=== PATIENT | male | born 1995 | race African-American/Black ===

== ENCOUNTER 2017-12-19 20:03 | Emergency (ER) | payer OTHER ==
[~2017-12-19] VITALS: Ht 185.4 cm; Wt 79.4 kg
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
[2017-12-19 20:27] VITALS: BP 137/77
[2017-12-19] MEDS ORDERED: HYDROcodon/IBUPROFEN 7.5/200MG 1 TAB TABLET PO ONE (20:30)
--- NOTE | 2017-12-20 08:41 | RAD ---
Right ankle x-rays 3 views History: Fall, ankle sprain, history of navicular fracture surgically fixated. Findings: 2 fixation screws across the navicular without loosening or fracture of the screws. No fracture or dislocation of the ankle. No talus osteochondral lesion. The soft tissues are unremarkable. Impression: No acute osseous injury.
--- NOTE | 2017-12-20 08:44 | RAD ---
Right foot x-rays 3 views History: Fall, history of navicular surgical fixation, ankle sprain. Findings: There are 2 internal fixation screws of the navicular noted which bridge a lucent fracture which is best visualized on the oblique view. No bony lysis surrounding the screws to suggest loosening. The remainder of the foot demonstrates no fracture or dislocation. Impression: 2 screws internally fixate a navicular fracture. The remainder of the foot is intact.
== END 2017-12-19 22:00 | disposition home or self-care (01) ==
LOC: ER 20:03
DX: S93.401A Sprain of unspecified ligament of right ankle, initial encounter (principal); S93.601A Unspecified sprain of right foot, initial encounter; V89.9XXA Person injured in unspecified vehicle accident, initial encounter; Y93.89 Activity, other specified; Y99.8 Other external cause status; Y92.89 Other specified places as the place of occurrence of the external cause
CPT/HCPCS: 29515; 73610; 73630; 99284

== ENCOUNTER 2018-10-19 15:35 | Emergency (ER) | payer OTHER ==
[~2018-10-19] VITALS: Ht 182.9 cm; Wt 81.6 kg
[~2018-10-19 15:35] MED LIST: hydrOXYzine HCL 25 MG TABLET PO STA
[2018-10-19 16:12] LABS: BASO % 1 % (0-3); EOS % 0 % (0-3); HEMATOCRIT 48.9 % (39.0-53.0); LYMPH # 1.4 x10^3/uL (1.0-4.8); LYMPH % 28 % (24-48); MEAN CORPUSCULAR HEMOGLOBIN 27 pg (25-35); MEAN CORPUSCULAR HGB CONC 33 g/dL (31-37); MEAN CORPUSCULAR VOLUME 84 fL (79-100); MONO # 0.4 x10^3/uL (0.0-1.1); MONO % 9 % (0-9); NEUT # 3.3 x10^3uL (1.8-7.7); NEUT % 63 % (31-73); PLATELET COUNT 201 x10^3/uL (140-400); RED BLOOD COUNT 5.85 x10^6/uL (4.30-5.70); RED CELL DISTRIBUTION WIDTH 13.2 % (11.5-14.5); WHITE BLOOD COUNT 5.2 x10^3/uL (4.0-11.0)
[2018-10-19 16:15] LABS: BARBITURATES NEG (NEG); BENZODIAZEPINES NEG (NEG); CANNABINOIDS POS (NEG); COCAINE NEG (NEG); METHADONE NEG (NEG); OPIATES NEG (NEG); PHENCYCLIDINE NEG (NEG)
[2018-10-19 16:22] LABS: ALBUMIN 4.4 g/dL (3.4-5.0); ALBUMIN/GLOBULIN RATIO 1.2 (1.0-1.7); CALCIUM 9.3 mg/dL (8.5-10.1); CREATININE 1.2 mg/dL (0.7-1.3); GFR 92.5; POTASSIUM 3.6 mmol/L (3.5-5.1); TOTAL BILIRUBIN 2.6 mg/dL (0.2-1.0); TOTAL PROTEIN 8.2 g/dL (6.4-8.2)
[2018-10-19 16:26] LABS: AMPHETAMINE/METHAMPHETAMINE NEG (NEG)
[2018-10-19 16:34] LABS: BACTERIA,URINE 0 /HPF (0-FEW); BILIRUBIN,URINE NEG (NEG); CLARITY,URINE CLEAR; COLOR,URINE STRAW; GLUCOSE,URINE NEG (NEG); NITRITE,URINE NEG (NEG); RBC,URINE RARE /HPF (0-2); SQUAMOUS EPITHELIAL CELL,UR OCC /LPF; UROBILINOGEN,URINE 0.2 mg/dL (0.2 mg/dL); WBC,URINE RARE /HPF (0-4)
--- NOTE | 2018-10-19 17:07 | PHYS DOC ---
Past History Past Medical History: Anxiety, Asthma, Bipolar (TED KENNEDY MD) Past Surgical History: No Surgical History (TED KENNEDY MD) Alcohol Use: Rarely Drug Use: None (TED KENNEDY MD) Adult General Chief Complaint Chief Complaint: Insomnia HPI HPI Patient is a 23 year old male who brought in by his uncle because of not able to sleep for 30 hours. Patient has history of bipolar disorder and did not follow-up with [facility] since last April and did not take his medication for several months. Patient states he was on his computer and playing with [employer] since yesterday morning and was not able to sleep all night. Patient denies suicidal and homicidal ideation, hallucination, using drug or drinking alcohol, change of appetite. Patient's uncle states he had pressure talking and thinking and had symptom of manic episode. Patient was seen at [facility] today and was sent to ER for evaluation. Patient had history of hospitalization about one year ago because of manic symptom. (TED KENNEDY MD) Review of Systems Review of Systems Constitutional: Denies fever or chills [] Eyes: Denies change in visual acuity, redness, or eye pain [] HENT: Denies nasal congestion or sore throat [] Respiratory: Denies cough or shortness of breath [] Cardiovascular: No additional information not addressed in HPI [] GI: Denies abdominal pain, nausea, vomiting, bloody stools or diarrhea [] : Denies dysuria or hematuria [] Musculoskeletal: Denies back pain or joint pain [] Integument: Denies rash or skin lesions [] Neurologic: Denies headache, focal weakness or sensory changes [] Endocrine: Denies polyuria or polydipsia [] All other systems were reviewed and found to be within normal limits, except as documented in this note. (TED KENNEDY MD) Current Medications Current Medications Current Medications Medications (Trade) Dose Ordered Sig/Katt Start Time Stop Time Status Last Admin Dose Admin Hydroxyzine HCl (Atarax) 50 mg 1X STAT 10/19/18 14:00 10/19/18 15:51 DC 10/19/18 16:08 50 MG (TED KENNEDY MD) Allergies Allergies Allergies Coded Allergies Type Severity Reaction Last Updated Verified No Known Drug Allergies 12/19/17 No (TED KENNEDY MD) Physical Exam Physical Exam Constitutional: Well nourished, no acute distress, non-toxic appearance. [] HENT: Normocephalic, atraumatic, bilateral external ears normal, oropharynx moist, no oral exudates, nose normal. [] Eyes: PERRLA, EOMI, conjunctiva normal, no discharge. [] Neck: Normal range of motion, no tenderness, supple, no stridor. [] Cardiovascular:Heart rate regular rhythm, no murmur [] Lungs & Thorax: Bilateral breath sounds clear to auscultation [] Abdomen: Bowel sounds normal, soft, no tenderness, no masses, no pulsatile masses. [] Skin: Warm, dry, no erythema, no rash. [] Back: No tenderness, no CVA tenderness. [] Extremities: No tenderness, no cyanosis, no clubbing, ROM intact, no edema. [] Neurologic: Alert and oriented X 3, normal motor function, normal sensory function, no focal deficits noted. [] Psychologic: Affect normal, judgement normal, mood normal. [] (TED KENNEDY MD) Physical Exam Constitutional: Well nourished, no acute distress, non-toxic appearance. [] HENT: Normocephalic, atraumatic, oropharynx moist Eyes: PERRL, EOMI, conjunctiva normal Neck: Normal range of motion, no tenderness, supple Cardiovascular: Heart rate regular rhythm, no murmur [] Lungs & Thorax: Bilateral breath sounds clear to auscultation [] Skin: Warm, dry Extremities: No tenderness, ROM intact, strength 5/5 all 4 extremities Neurologic: Alert and oriented X 3, normal motor function, normal sensory function, no focal deficits noted. [] Psychologic: Affect normal, judgement normal, mood normal; denies suicidal or homicidal ideation (FERNANDEZ KESSLER DO) Current Patient Data Vital Signs Vital Signs Date Time Temp Pulse Resp B/P (MAP) Pulse Ox O2 Delivery O2 Flow Rate FiO2 10/19/18 15:40 97.8 69 20 100 Room Air Lab Results Laboratory Tests Test 10/19/18 15:55 10/19/18 15:56 Urine Collection Type Unknown Urine Color Straw Urine Clarity Clear Urine pH 6.5 Urine Specific [place] <=1.005 Urine Protein Neg (NEG-TRACE) Urine Glucose (UA) Neg mg/dL (NEG) Urine Ketones (Stick) 15 mg/dL (NEG) Urine Blood Neg (NEG) Urine Nitrite Neg (NEG) Urine Bilirubin Neg (NEG) Urine Urobilinogen Dipstick 0.2 mg/dL (0.2 mg/dL) Urine Leukocyte Esterase Neg (NEG) Urine RBC Rare /HPF (0-2) Urine WBC Rare /HPF (0-4) Urine Squamous Epithelial Cells Occ /LPF Urine Bacteria 0 /HPF (0-FEW) Urine Opiates Screen Neg (NEG) Urine Methadone Screen Neg (NEG) Urine Barbiturates Neg (NEG) Urine Phencyclidine Screen Neg (NEG) Urine Amphetamine/Methamphetamine Neg (NEG) Urine Benzodiazepines Screen Neg (NEG) Urine Cocaine Screen Neg (NEG) Urine Cannabinoids Screen Pos (NEG) Urine Ethyl Alcohol Neg (NEG) White Blood Count 5.2 x10^3/uL (4.0-11.0) Red Blood Count 5.85 x10^6/uL (4.30-5.70) H Hemoglobin 16.0 g/dL (13.0-17.5) Hematocrit 48.9 % (39.0-53.0) Mean Corpuscular Volume 84 fL (79-100) Mean Corpuscular Hemoglobin 27 pg (25-35) Mean Corpuscular Hemoglobin Concent 33 g/dL (31-37) Red Cell Distribution Width 13.2 % (11.5-14.5) Platelet Count 201 x10^3/uL (140-400) Neutrophils (%) (Auto) 63 % (31-73) Lymphocytes (%) (Auto) 28 % (24-48) Monocytes (%) (Auto) 9 % (0-9) Eosinophils (%) (Auto) 0 % (0-3) Basophils (%) (Auto) 1 % (0-3) Neutrophils # (Auto) 3.3 x10^3uL (1.8-7.7) Lymphocytes # (Auto) 1.4 x10^3/uL (1.0-4.8) Monocytes # (Auto) 0.4 x10^3/uL (0.0-1.1) Eosinophils # (Auto) 0.0 x10^3/uL (0.0-0.7) Basophils # (Auto) 0.0 x10^3/uL (0.0-0.2) Sodium Level 140 mmol/L (136-145) Potassium Level 3.6 mmol/L (3.5-5.1) Chloride Level 101 mmol/L (98-107) Carbon Dioxide Level 28 mmol/L (21-32) Anion Gap 11 (6-14) Blood Urea Nitrogen 8 mg/dL (8-26) Creatinine 1.2 mg/dL (0.7-1.3) Estimated GFR (Cockcroft-Gault) 92.5 BUN/Creatinine Ratio 7 (6-20) Glucose Level 116 mg/dL (70-99) H Calcium Level 9.3 mg/dL (8.5-10.1) Total Bilirubin 2.6 mg/dL (0.2-1.0) H Aspartate Amino Transferase (AST) 22 U/L (15-37) Alanine Aminotransferase (ALT) 26 U/L (16-63) Alkaline Phosphatase 58 U/L (46-116) Total Protein 8.2 g/dL (6.4-8.2) Albumin 4.4 g/dL (3.4-5.0) Albumin/Globulin Ratio 1.2 (1.0-1.7) (TED KENNEDY MD) EKG EKG [] (TED KENNEDY MD) Radiology/Procedures Radiology/Procedures [] (TED KENNEDY MD) Course & Med Decision Making Course & Med Decision Making Pertinent Labs reviewed. (See chart for details) Evaluation of patient in ER showed 23-year-old male patient with history of bipolar disorder family members because of insomnia since last night. Patient was alert and oriented and answered the question appropriately and did not have suicidal and homicidal ideation and hallucination. Mild elevation of bilirubin. Urinalysis was positive for marijuana. Patient treated with hydroxyzine and was sleeping all the time. Waiting for psychiatric evaluation. And care transferred to Dr. Turner at 1800. (TED KENNEDY MD) Course & Med Decision Making Patient was seen and evaluated by TELE psych, they recommended to admit him, patient his family refused admission, he requested to be treated in the outpatient setting .patient denies being suicidal or homicidal he is stated that I just need to help to sleep. Patient uncle in the room stated that his mom In the morning from [place] to take care of him he has a very supportive family . (EDWARD TURNER MD) Course & Med Decision Making 0600- Sign out received from Dr. Turner for patient with reports of delusions likely secondary to insomnia with history of bipolar disorder, not currently well managed on medications. Patient was medically cleared and underwent tele- psychiatric evaluation prior to any sleep. Patient was given medications last night to help sleep. Patient was seen and evaluated by myself. Patient appears with appropriate mentation. Denies suicidal or homicidal ideation at this time. Patient requesting to be discharge home with his mother who is flying in this AM. Patient with history of prior treatment with [facility]. 0830- Given patient's history and request, contacted [facility] upon their opening for re-evaluation and recommendation. Discussed case with Addison, who has seen patient previously and is in agreement with coming and re-evaluating patient in the ED. 0930- Addison from [facility] here and has evaluated patient and had patient sign a safety contract. Addison reports patient safe at this time for outpatient follow-up at the [facility]. Patient in agreement. Patient stable for discharge with outpatient follow-up with PCP/Psych. Discussed findings and plan with patient, who acknowledges understanding and agreement. (FERNANDEZ KESSLER DO) Dragon Disclaimer Dragon Disclaimer This electronic medical record was generated, in whole or in part, using a voice recognition dictation system. (TED KENNEDY MD) Departure Departure: Impression: Primary Impression: Insomnia Additional Impressions: Bipolar disorder Noncompliance with treatment Marijuana abuse Elevated bilirubin Disposition: HOME, SELF-CARE (under care of family) Condition: STABLE Referrals: PCP,NO (PCP) Patient Instructions: Insomnia-Brief, Manic Depression (Bipolar Disorder), Marijuana Abuse-Brief Additional Instructions: One of your lab values (bilirubin) was found to be slightly elevated. This is nonspecific. You will need to have this level rechecked by your family physician. Problem Qualifiers Primary Impression: Insomnia Insomnia type: unspecified Qualified Codes: G47.00 - Insomnia, unspecified Additional Impressions: Bipolar disorder Active/Remission status: remission status unspecified Qualified Codes: F31.9 - Bipolar disorder, unspecified TED KENNEDY MD Oct 19, 2018 17:07 EDWARD TURNER MD Oct 19, 2018 22:59 FERNANDEZ KESSLER DO Oct 20, 2018 07:31
[2018-10-19] MEDS ORDERED: OLANZapine 2.5 MG TABLET PO ONE (20:45)
[2018-10-19] MEDS ORDERED: diphenhydrAMINE HCL 25 MG CAPSULE PO ONE (22:00)
[2018-10-19] MEDS ORDERED: LORazepam 1 MG TABLET PO ONE (22:00)
[2018-10-20 10:00] VITALS: BP 146/80
== END 2018-10-20 12:05 | disposition home or self-care (01) ==
LOC: ER 15:35
DX: G47.00 Insomnia, unspecified (principal); F31.9 Bipolar disorder, unspecified; F12.10 Cannabis abuse, uncomplicated; E80.7 Disorder of bilirubin metabolism, unspecified; F41.9 Anxiety disorder, unspecified; J45.909 Unspecified asthma, uncomplicated; Z91.19 Patient's noncompliance with other medical treatment and regimen
CPT/HCPCS: 36415; 80053; 80307; 81001; 85025; 99284; Q0163

== ENCOUNTER 2019-12-03 11:18 | Emergency (ER) | payer OTHER ==
[~2019-12-03] VITALS: Ht 182.9 cm; Wt 95.0 kg
[2019-12-03 11:35] VITALS: BP 152/94
[2019-12-03] MEDS ORDERED: BUPIVACAINE MPF 0.5% 30 ML VIAL. IJ ONE (12:00)
--- NOTE | 2019-12-03 12:25 | PHYS DOC ---
Past History Past Medical History: Anxiety, Asthma, Bipolar Past Surgical History: No Surgical History Alcohol Use: Rarely Drug Use: None Adult General Chief Complaint Chief Complaint: LACERATION/AVULSION HPI HPI Patient is a 24-year-old male presented to ER today for evaluation of right index finger laceration. 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 Patient is up-to-date on his vaccination status. Patient is said it just happened at work about 45 minutes ago. Review of Systems Review of Systems Constitutional: Denies fever or chills [] Eyes: Denies change in visual acuity, redness, or eye pain [] HENT: Denies nasal congestion or sore throat [] Respiratory: Denies cough or shortness of breath [] Cardiovascular: No additional information not addressed in HPI [] GI: Denies abdominal pain, nausea, vomiting, bloody stools or diarrhea [] : Denies dysuria or hematuria [] Musculoskeletal: Denies back pain or joint pain [] Integument: Denies rash or skin lesions [] Neurologic: Denies headache, focal weakness or sensory changes [] Endocrine: Denies polyuria or polydipsia [] All other systems were reviewed and found to be within normal limits, except as documented in this note. Current Medications Current Medications Current Medications Medications (Trade) Dose Ordered Sig/Katt Start Time Stop Time Status Last Admin Dose Admin Bupivacaine HCl (Sensorcaine Mpf 0.5%) 10 ml 1X ONCE 12/03/19 12:00 12/03/19 12:01 DC Allergies Allergies Allergies Coded Allergies Type Severity Reaction Last Updated Verified No Known Drug Allergies 12/19/17 No Physical Exam Physical Exam Constitutional: Well developed, well nourished, no acute distress, non-toxic appearance. [] HENT: Normocephalic, atraumatic, bilateral external ears normal, oropharynx moist, no oral exudates, nose normal. [] Eyes: PERRLA, EOMI, conjunctiva normal, no discharge. [] Neck: Normal range of motion, no tenderness, supple, no stridor. [] Cardiovascular:Heart rate regular rhythm, no murmur [] Lungs & Thorax: Bilateral breath sounds clear to auscultation [] Abdomen: Bowel sounds normal, soft, no tenderness, no masses, no pulsatile masses. [] Skin: Warm, dry, no erythema, no rash. 2 cm laceration at the pad of right index finger, no active bleeding, no tendon injury, the wound was cleaned. Back: No tenderness, no CVA tenderness. [] Extremities: No tenderness, no cyanosis, no clubbing, ROM intact, no edema. [] Neurologic: Alert and oriented X 3, normal motor function, normal sensory function, no focal deficits noted. [] Psychologic: Affect normal, judgement normal, mood normal. [] Current Patient Data Vital Signs Vital Signs Date Time Temp Pulse Resp B/P (MAP) Pulse Ox O2 Delivery O2 Flow Rate FiO2 12/03/19 11:35 98.1 69 18 152/94 (113) 100 Room Air EKG EKG [] Radiology/Procedures Radiology/Procedures Indication: right index finger laceration Procedure: The patient was placed in the appropriate position and anesthesia around the [right index finger, digital block at webspace with 6 ml of .5% marcaine]. The area was then cleaned with saline]. The laceration was closed with 3 sutures, 4-0-nylon. The wound area was then dressed with nonstick gauze Total repaired wound length: 2 cm Other Items: [OTHER ITEMS] The patient tolerated the procedure well Complications: none Course & Med Decision Making Course & Med Decision Making Pertinent Labs and Imaging studies reviewed. (See chart for details) [] Dragon Disclaimer Dragon Disclaimer This electronic medical record was generated, in whole or in part, using a voice recognition dictation system. Departure Departure: Impression: Primary Impression: Laceration of finger Disposition: HOME, SELF-CARE Condition: STABLE Referrals: PCP,NO (PCP) follow up with your doctor in 7 days for sutures removal Patient Instructions: Laceration Care, Adult RUTH NATION DO Dec 03, 2019 12:24
== END 2019-12-03 12:35 | disposition home or self-care (01) ==
LOC: ER 11:18
DX: S61.210A Laceration without foreign body of right index finger without damage to nail, initial encounter (principal); J45.909 Unspecified asthma, uncomplicated; W26.8XXA Contact with other sharp object(s), not elsewhere classified, initial encounter; Y93.89 Activity, other specified; Y92.89 Other specified places as the place of occurrence of the external cause; Y99.0 Civilian activity done for income or pay
CPT/HCPCS: 12001; 99282; J3490

== ENCOUNTER 2019-12-10 17:05 | Emergency (ER) | payer OTHER ==
[~2019-12-10] VITALS: Ht 182.9 cm; Wt 95.0 kg
[2019-12-10 17:10] VITALS: BP 142/85
--- NOTE | 2019-12-10 17:21 | PHYS DOC ---
Past History Past Medical History: Anxiety, Asthma, Bipolar Past Surgical History: No Surgical History Alcohol Use: Rarely Drug Use: None General Adult EDM: Chief Complaint: SUTURE/STAPLE REMOVAL HPI: HPI: 24-year-old male presents for suture removal of the right index finger. He had 3 sutures placed after a laceration. It is been exactly 7 days. He has had no complications. Review of Systems: Review of Systems: Constitutional: Denies fever or chills Eyes: Denies change in visual acuity HENT: Denies nasal congestion or sore throat Respiratory: Denies cough or shortness of breath Cardiovascular: Denies chest pain or edema GI: Denies abdominal pain, nausea, vomiting, bloody stools or diarrhea : Denies dysuria Musculoskeletal: Denies back pain or joint pain Integument: Laceration right index finger Neurologic: Denies headache, focal weakness or sensory changes Endocrine: Denies polyuria or polydipsia Lymphatic: Denies swollen glands Psychiatric: Denies depression or anxiety Heart Score: Risk Factors: Risk Factors: DM, Current or recent (<one month) smoker, HTN, HLP, family history of CAD, obesity. Risk Scores: Score 0 - 3: 2.5% MACE over next 6 weeks - Discharge Home Score 4 - 6: 20.3% MACE over next 6 weeks - Admit for Clinical Observation Score 7 - 10: 72.7% MACE over next 6 weeks - Early Invasive Strategies Allergies: Allergies: Allergies Coded Allergies Type Severity Reaction Last Updated Verified No Known Drug Allergies 12/19/17 No Physical Exam: PE: Constitutional: Well developed, well nourished, no acute distress, non-toxic appearance. [] HENT: Normocephalic, atraumatic, bilateral external ears normal, oropharynx moist, no oral exudates, nose normal. [] Eyes: PERRLA, EOMI, conjunctiva normal, no discharge. [] Neck: Normal range of motion, no tenderness, supple, no stridor. [] Cardiovascular:Heart rate regular rhythm, no murmur [] Lungs & Thorax: Bilateral breath sounds clear to auscultation [] Abdomen: Bowel sounds normal, soft, no tenderness, no masses, no pulsatile masses. [] Skin: Healing laceration of the right index finger with 3 sutures, no sign of infection [] Back: No tenderness, no CVA tenderness. [] Extremities: No tenderness, no cyanosis, no clubbing, ROM intact, no edema. [] Neurologic: Alert and oriented X 3, normal motor function, normal sensory function, no focal deficits noted. [] Psychologic: Affect normal, judgement normal, mood normal. [] EKG: EKG: [] Radiology/Procedures: Radiology/Procedures: [] Course & Med Decision Making: Course & Med Decision Making Pertinent Labs and Imaging studies reviewed. (See chart for details) The patient's laceration is healing well. His sutures can be removed. They were removed without difficulty. He is stable for discharge at this time. [] Dragon Disclaimer: Dragon Disclaimer: This electronic medical record was generated, in whole or in part, using a voice recognition dictation system. Departure Departure: Impression: Primary Impression: Encounter for removal of sutures Disposition: 01 HOME, SELF-CARE Condition: STABLE Referrals: PCPLUCY (PCP) Patient Instructions: Suture Removal-Brief STEVEN BALLARD DO Dec 10, 2019 17:21
== END 2019-12-10 17:23 | disposition home or self-care (01) ==
LOC: ER 17:05
DX: S61.210D Laceration without foreign body of right index finger without damage to nail, subsequent encounter (principal); J45.909 Unspecified asthma, uncomplicated; X58.XXXD Exposure to other specified factors, subsequent encounter
CPT/HCPCS: 99281